=== PATIENT | female | born 1990 | race Hispanic/Latino ===

== ENCOUNTER 2018-05-10 23:14 | Emergency (ER) | payer OTHER, SELFPAY ==
--- NOTE | 2018-05-11 01:09 | EDPHYS ---
Physician Documentation [facility] Name: Lizzette Mcneal Age: 27 yrs Sex: Female : 1990 Arrival Date: 05/10/2018 Time: 23:15 Bed 20 Private MD: ED Physician Gael Carcamo HPI: 05/11 01:21 This 27 yrs old Female presents to ER via Ambulatory with complaints of gs Urinary Problem, Abdominal Pain. 01:21 The patient presents with abdominal pain in the lower abdomen. Onset: The gs symptoms/episode began/occurred yesterday. The symptoms do not radiate. Associated signs and symptoms: Pertinent negatives: nausea and vomiting, fever. The symptoms are described as crampy, intermittent. Modifying factors: The symptoms are alleviated by nothing, the symptoms are aggravated by urinating. Severity of pain: At its worst the pain was moderate in the emergency department the pain has improved markedly. The patient has experienced similar episodes in the past, a few times. The patient has not recently seen a physician. 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 - Social history:: Smoking status: Patient uses tobacco products, smokes one-half pack cigarettes per day, Patient/guardian denies using alcohol, street drugs. - Ebola Screening: : Patient negative for fever greater than or equal to 101.5 degrees Fahrenheit, and additional compatible Ebola Virus Disease symptoms Patient denies exposure to infectious person Patient denies travel to an Ebola-affected area in the 21 days before illness onset. ROS: 05/11 01:21 All other systems are negative. gs Exam: 01:21 Head/Face: Normocephalic, atraumatic. Eyes: Pupils equal round and reactive to light, gs extra-ocular motions intact. Lids and lashes normal. Conjunctiva and sclera are non-icteric and not injected. Cornea within normal limits. Periorbital areas with no swelling, redness, or edema. ENT: Nares patent. No nasal discharge, no septal abnormalities noted. Tympanic membranes are normal and external auditory canals are clear. Oropharynx with no redness, swelling, or masses, exudates, or evidence of obstruction, uvula midline. Mucous membranes moist. Neck: Trachea midline, no thyromegaly or masses palpated, and no cervical lymphadenopathy. Supple, full range of motion without nuchal rigidity, or vertebral point tenderness. No Meningismus. Chest/axilla: Normal chest wall appearance and motion. Nontender with no deformity. No lesions are appreciated. Cardiovascular: Regular rate and rhythm with a normal S1 and S2. No gallops, murmurs, or rubs. Normal PMI, no JVD. No pulse deficits. Respiratory: Lungs have equal breath sounds bilaterally, clear to auscultation and percussion. No rales, rhonchi or wheezes noted. No increased work of breathing, no retractions or nasal flaring. Back: No spinal tenderness. No costovertebral tenderness. Full range of motion. Skin: Warm, dry with normal turgor. Normal color with no rashes, no lesions, and no evidence of cellulitis. MS/ Extremity: Pulses equal, no cyanosis. Neurovascular intact. Full, normal range of motion. Neuro: Awake and alert, GCS 15, oriented to person, place, time, and situation. Cranial nerves II-XII grossly intact. Motor strength 5/5 in all extremities. Sensory grossly intact. Cerebellar exam normal. Normal gait. 01:21 Constitutional: The patient appears alert, awake. 01:21 Abdomen/GI: Palpation: mild abdominal tenderness, in the suprapubic area. Vital Signs: 05/10 23:28 BP 114 / 75; Pulse 63; Resp 18; Temp 98.0; Pulse Ox 100% ; Weight 88 kg (R); Height 5 ao ft. 0 in. (152.40 cm) (R); Pain 10/10; 05/11 00:28 BP 115 / 74; Pulse 64; Resp 18; Pulse Ox 98% on R/A; ao 05/10 23:28 Body Mass Index 37.89 (88.00 kg, 152.40 cm) ao MDM: 00:33 Patient medically screened. gs 01:21 Differential diagnosis: Ectopic , non-specific abd pain, urinary tract gs infection. Data reviewed: vital signs, nurses notes, lab test result(s). Response to treatment: the patient's symptoms have markedly improved after treatment, and as a result, I will discharge patient. ED course: gave results of udip, doesn't want to wait for micro just wants abx. 05/10 23:23 Order name: Urine Microscopic Only 05/11 00:50 Order name: Urine Dipstick--Ancillary (enter results) ms 05/10 23:23 Order name: Urine Test (obtain specimen); Complete Time: 01:09 05/10 23:23 Order name: Urine Dipstick-Ancillary (obtain specimen); Complete Time: 01: 05/11 00:50 Order name: Urine --Ancillary (enter results) ms Administered Medications: No medications were administered Disposition: 05/11/18 01:08 Discharged to Home. Impression: Cystitis. - Condition is Stable. - Prescriptions for Keflex 500 mg Oral Capsule - take 1 capsule by ORAL route every 12 hours for 7 days; 14 capsule. - Medication Reconciliation Form, Thank You Letter, Antibiotic Education, Prescription Opioid Use form. - Follow up: Private Physician; When: 2 - 3 days; Reason: Re-evaluation by your physician. Signatures: Dispatcher [employer] EDKS Vineet Cedillo RN RN Gael Sanchez MD MD Corrections: (The following items were deleted from the chart) 01:12 01:08 05/11/2018 01:08 Discharged to Home. Impression: Cystitis. Condition is Stable. ao Forms are Medication Reconciliation Form, Thank You Letter, Antibiotic Education, Prescription Opioid Use. Follow up: Private Physician; When: 2 - 3 days; Reason: Re-evaluation by your physician.
--- NOTE | 2018-05-11 01:09 | ER ---
Nurse's Notes [facility] Name: Lizzette Mcneal Age: 27 yrs Sex: Female : 1990 Arrival Date: 05/10/2018 Time: 23:15 Bed 20 Private MD: Diagnosis: Cystitis Presentation: 05/10 23:26 Presenting complaint: Patient states: Abdominal pain after having BM. Patient reports ao sharp pain in the lower abdominal area. Transition of care: patient was not received from another setting of care. Onset of symptoms was May 10, 2018 at 21:00. Risk Assessment: Do you want to hurt yourself or someone else? Patient reports no desire to harm self or others. Initial Sepsis Screen: Does the patient meet any 2 criteria? No. Patient's initial sepsis screen is negative. Does the patient have a suspected source of infection? No. Patient's initial sepsis screen is negative. Care prior to arrival: None. 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 - Social history:: Smoking status: Patient uses tobacco products, smokes one-half pack cigarettes per day, Patient/guardian denies using alcohol, street drugs. - Ebola Screening: : Patient negative for fever greater than or equal to 101.5 degrees Fahrenheit, and additional compatible Ebola Virus Disease symptoms Patient denies exposure to infectious person Patient denies travel to an Ebola-affected area in the 21 days before illness onset. Screenin:31 Abuse screen: Denies threats or abuse. Denies injuries from another. Nutritional ao screening: No deficits noted. Tuberculosis screening: No symptoms or risk factors identified. Fall Risk None identified. Assessment: 23:30 General: Appears in no apparent distress. comfortable, Behavior is agitated, anxious, ao inappropriate for age. Pain: Complains of pain in abdomen Pain currently is 10 out of 10 on a pain scale. Quality of pain is described as sharp. Neuro: Level of Consciousness is awake, alert, obeys commands, Oriented to person, place, time, situation, Appropriate for age Moves all extremities. Full function Speech is normal, Facial symmetry appears normal. Cardiovascular: Capillary refill < 3 seconds Patient's skin is warm and dry. Respiratory: Airway is patent Respiratory effort is even, unlabored, Respiratory pattern is regular, symmetrical. GI: Bowel sounds present X 4 quads. Abd is soft and non tender Abd is soft. : No signs and/or symptoms were reported regarding the genitourinary system. EENT: No signs and/or symptoms were reported regarding the EENT system. Derm: Skin is intact, Skin is pink, warm \T\ dry. normal, Skin temperature is warm. Musculoskeletal: Circulation, motion, and sensation intact. Range of motion: intact in all extremities. 05/11 00:28 Reassessment: Patient appears in no apparent distress at this time. Patient and/or ao family updated on plan of care and expected duration. Pain level reassessed. Patient is alert, oriented x 3, equal unlabored respirations, skin warm/dry/pink. at bedside assessing patient. 01:10 Reassessment: Patient appears in no apparent distress at this time. Patient wanted to ao be go home. Dr Carcamo was notified and DC patient. Patient got a prescriptions to take home and stated that she will follow up with PCP. Vital Signs: 05/10 23:28 BP 114 / 75; Pulse 63; Resp 18; Temp 98.0; Pulse Ox 100% ; Weight 88 kg (R); Height 5 ao ft. 0 in. (152.40 cm) (R); Pain 10/10; 05/11 00:28 BP 115 / 74; Pulse 64; Resp 18; Pulse Ox 98% on R/A; ao 05/10 23:28 Body Mass Index 37.89 (88.00 kg, 152.40 cm) ao ED Course: 05/10 23:15 Patient arrived in ED. am2 23:22 Gael Carcamo MD is Attending Physician. gs 23:26 Vineet Cedillo, RAMOS is Primary Nurse. ao 23:28 Triage completed. ao 23:28 Arm band placed on right wrist. Patient placed in an exam room, on a stretcher, on ao pulse oximetry, Patient notified of wait time. 23:32 Patient has correct armband on for positive identification. Pulse ox on. NIBP on. ao 05/11 01:00 No provider procedures requiring assistance completed. Patient did not have IV access ao during this emergency room visit. Administered Medications: No medications were administered Outcome: 01:08 Discharge ordered by . 01:12 Patient left the ED. ao 01:48 Discharged to home ambulatory, with family. ao 01:48 Condition: stable 01:48 Discharge instructions given to patient, Instructed on discharge instructions, follow up and referral plans. Demonstrated understanding of instructions, follow-up care, medications, Prescriptions given X 1. Addendum: 05/14/2018 09:43 Addendum: Culture Results: Positive urine culture. No further action required. Bacteria s s sensitive to prescribed antibiotic. Signatures: Aishwarya Lal RN RN ss Ortiz, Alex, RN RN ao Moreno, Amanda am2 Starr, Gregory, MD MD
[2018-05-11 01:13] LABS: Urine Bacteria >50 /HPF (<20); Urine Culture Reflex Order REFLEXED; Urine RBC NONE SEEN /HPF (NONE SEEN)
[2018-05-11 02:36] LABS: Urine Blood TRACE (NEG); Urine Glucose NEGATIVE (NEG); Urine Protein NEGATIVE (NEG); Urine Specific Gravity 1.025 (1.005-1.030)
== END 2018-05-11 01:12 | disposition home or self-care (01) ==
LOC: ER 23:14
DX: N30.90 Cystitis, unspecified without hematuria (principal)
CPT/HCPCS: 81003; 81015; 81025; 87077; 87086; 87088; 87186; 99283

== ENCOUNTER 2018-08-02 19:25 | Emergency (ER) | payer SELFPAY ==
[2018-08-02 20:20] LABS: Absolute Lymphocytes (CBC) 2.9 K/uL (0.7-4.9); Absolute Monocytes 0.8 K/uL (0.1-1.3); Absolute Neutrophil 5.5 K/uL (1.8-8.0); Basophils % 0.4 % (0-1.3); Eosinophils % 1.9 % (0-4.4); Lymphocytes % 30.7 % (15.3-44.8); MCH 30.5 pg (27.0-35.0); MCV 89.2 fL (80-100); MPV 8.1 fL (7.6-11.3); Monocytes % 8.2 % (3.3-12.3); RBC Red Blood Cell Count 4.37 M/uL (3.86-4.86)
--- NOTE | 2018-08-02 20:33 | RAD REPORT ---
EXAM DESCRIPTION: RAD - Chest Single View - 08/02/2018 8:05 pm CLINICAL HISTORY: Chest pain, shortness of breath COMPARISON: None. TECHNIQUE: AP portable chest image was obtained 1951 hours . FINDINGS: Lungs are clear. Heart and vasculature are normal. No measurable pleural effusion and no p neumothorax. No acute bony abnormality seen. No acute aortic findings suspected. IMPRESSION: No acute cardiopulmonary process.
[2018-08-02 20:37] LABS: BUN Blood Urea Nitrogen 7 mg/dL (7-18); Bicarbonate 26 mmol/L (21-32); Glucose Level 107 mg/dL (74-106); Potassium 3.9 mmol/L (3.5-5.1); Sodium Level 140 mmol/L (136-145); Troponin (Emerg Dept Use Only) < 0.02 ng/mL (0.0-0.045)
--- NOTE | 2018-08-02 20:55 | EDPHYS ---
Physician Documentation [facility] Name: Lizzette Mcneal Age: 27 yrs Sex: Female : 1990 Arrival Date: 08/02/2018 Time: 19:27 Bed 13 Private MD: None, None ED Physician Christoph Doll HPI: 08/02 20:48 This 27 yrs old Female presents to ER via Ambulatory with complaints of Chest pm1 Pain. 20:48 The patient or guardian reports chest pain that is located primarily in the mid-sternal pm1 area. The pain does not radiate. Associated signs and symptoms: Pertinent negatives: abdominal pain, cough, diaphoresis, dizziness, headache, nausea, shortness of breath, vomiting. The chest pain is described as sharp. Duration: The patient or guardian reports a single episode, that is still ongoing. Modifying factors: the symptoms are aggravated by cough, deep breath. Severity of pain: in the emergency department the pain is unchanged. The patient has not experienced similar symptoms in the past. Patient with onset of chest pain last night. Pain worse with deep breathing, cough, and palpation. Patient does not have shortness of breath but reports breathing shallower to prevent deep breathing to cause pain. 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 - Social history:: Smoking status: Patient uses tobacco products, smokes one-half pack cigarettes per day. - Ebola Screening: : Patient denies travel to an Ebola-affected area in the 21 days before illness onset. ROS: 20:48 Constitutional: Negative for fever, chills, and weight loss, Eyes: Negative for injury, pm1 pain, redness, and discharge, ENT: Negative for injury, pain, and discharge, Neck: Negative for injury, pain, and swelling, Respiratory: Negative for shortness of breath, cough, wheezing, and pleuritic chest pain. 20:48 Abdomen/GI: Negative for abdominal pain, nausea, vomiting, diarrhea, and constipation, Back: Negative for injury and pain, : Negative for injury, bleeding, discharge, and swelling, MS/Extremity: Negative for injury and deformity, Skin: Negative for injury, rash, and discoloration, Neuro: Negative for headache, weakness, numbness, tingling, and seizure. 20:48 Cardiovascular: Positive for chest pain, Negative for edema, orthopnea, palpitations. Exam: 20:48 Constitutional: This is a well developed, well nourished patient who is awake, alert, pm1 and in no acute distress. Head/Face: Normocephalic, atraumatic. Eyes: Pupils equal round and reactive to light, extra-ocular motions intact. Lids and lashes normal. Conjunctiva and sclera are non-icteric and not injected. Cornea within normal limits. Periorbital areas with no swelling, redness, or edema. ENT: Nares patent. No nasal discharge, no septal abnormalities noted. Tympanic membranes are normal and external auditory canals are clear. Oropharynx with no redness, swelling, or masses, exudates, or evidence of obstruction, uvula midline. Mucous membranes moist. Neck: Trachea midline, no thyromegaly or masses palpated, and no cervical lymphadenopathy. Supple, full range of motion without nuchal rigidity, or vertebral point tenderness. No Meningismus. 20:48 Cardiovascular: Regular rate and rhythm with a normal S1 and S2. No gallops, murmurs, or rubs. Normal PMI, no JVD. No pulse deficits. Respiratory: Lungs have equal breath sounds bilaterally, clear to auscultation and percussion. No rales, rhonchi or wheezes noted. No increased work of breathing, no retractions or nasal flaring. 20:48 Abdomen/GI: Soft, non-tender, with normal bowel sounds. No distension or tympany. No guarding or rebound. No evidence of tenderness throughout. Back: No spinal tenderness. No costovertebral tenderness. Full range of motion. Skin: Warm, dry with normal turgor. Normal color with no rashes, no lesions, and no evidence of cellulitis. MS/ Extremity: Pulses equal, no cyanosis. Neurovascular intact. Full, normal range of motion. 20:48 Chest/axilla: Inspection: normal, Palpation: tenderness, of the mid-sternal area, that totally reproduces the patient's complaints, Pain reproduced completely with deep breathing. 20:48 NSR 20:48 Neuro: Orientation: is normal, Motor: is normal, moves all fours, Sensation: is normal, no obvious gross deficits, Gait: is steady, at a normal pace, without difficulty. Vital Signs: 19:34 BP 115 / 67; Pulse 73; Resp 18; Temp 97.6; Pulse Ox 99% on R/A; Weight 87.54 kg (R); aj1 Height 5 ft. 4 in. (162.56 cm) (R); Pain 5/10; 20:50 BP 112 / 63; Pulse 75; Resp 17 S; Pulse Ox 99% on R/A; cc3 19:34 Body Mass Index 33.13 (87.54 kg, 162.56 cm) aj1 MDM: 19:47 Patient medically screened. pm1 20:48 The patient's pulmonary embolism risk score was calculated as follows: No Risks (0 pm1 Pts). JOÃO Risk Score: TOTAL SCORE = 0. 20:48 Data reviewed: vital signs. pm1 20:48 Data interpreted: Pulse oximetry: on room air is 99 %. Interpretation: normal. pm1 Counseling: I had a detailed discussion with the patient and/or guardian regarding: the historical points, exam findings, and any diagnostic results supporting the discharge/admit diagnosis, lab results, radiology results, the need for outpatient follow up, to return to the emergency department if symptoms worsen or persist or if there are any questions or concerns that arise at home. 20:48 ED course: Patient offered Toradol for pain but patient refused and wants to take pm1 ibuprofen at home. 08/02 19:50 Order name: Basic Metabolic Panel; Complete Time: 20:42 pm1 08/02 19:50 Order name: CBC with Diff; Complete Time: 20:27 pm1 08/02 19:50 Order name: Troponin (emerg Dept Use Only); Complete Time: 20:42 pm1 08/02 19:50 Order name: XRAY Chest (1 view); Complete Time: 20:38 pm1 08/02 19:50 Order name: EKG; Complete Time: 19:51 pm1 08/02 19:50 Order name: Cardiac monitoring; Complete Time: 20:06 pm1 08/02 19:50 Order name: EKG - Nurse/Tech; Complete Time: 20:06 pm1 08/02 19:50 Order name: IV Saline Lock; Complete Time: 20:56 pm1 08/02 19:50 Order name: Labs collected and sent; Complete Time: 20:56 pm1 08/02 19:50 Order name: O2 Per Protocol; Complete Time: 20:07 pm1 08/02 19:50 Order name: O2 Sat Monitoring; Complete Time: 20:07 pm1 Administered Medications: No medications were administered Disposition: 08/03 06:17 Co-signature as Attending Physician, Christoph Doll MD Available for consultation at ps1 all times.. Disposition: 08/02/18 20:54 Discharged to Home. Impression: Chest pain, unspecified. - Condition is Stable. - Discharge Instructions: Nonspecific Chest Pain, Chest Wall Pain. - Prescriptions for Naprosyn 500 mg Oral Tablet - take 1 tablet by ORAL route 2 times per day take with food; 30 tablet. Cyclobenzaprine 10 mg Oral Tablet - take 1 tablet by ORAL route every 8 hours As needed; 30 tablet. - Medication Reconciliation Form, Thank You Letter form. - Follow up: Emergency Department; When: As needed; Reason: Worsening of condition. Follow up: Private Physician; When: 2 - 3 days; Reason: Recheck today's complaints, Continuance of care, Re-evaluation by your physician. - Problem is new. - Symptoms have improved. Signatures: Dispatcher [employer] EDCelia Hernandez RN RN aj1 Luis E Dupree, TRAVELING INVENTORY ASSOCIATE TRAVELING INVENTORY ASSOCIATE pm1 Christoph Doll MD MD ps1 Michelle Newman cc3 Corrections: (The following items were deleted from the chart) 08/02 21:15 20:54 08/02/2018 20:54 Discharged to Home. Impression: Chest pain, unspecified. cc3 Condition is Stable. Forms are Medication Reconciliation Form, Thank You Letter, Antibiotic Education, Prescription Opioid Use. Follow up: Emergency Department; When: As needed; Reason: Worsening of condition. Follow up: Private Physician; When: 2 - 3 days; Reason: Recheck today's complaints, Continuance of care, Re-evaluation by your physician. Problem is new. Symptoms have improved. pm1
--- NOTE | 2018-08-02 20:55 | ER ---
Nurse's Notes [facility] Name: Lizzette Mcneal Age: 27 yrs Sex: Female : 1990 Arrival Date: 08/02/2018 Time: 19:27 Bed 13 Private MD: None, None Diagnosis: Chest pain, unspecified Presentation: 08/02 19:31 Presenting complaint: Patient states: Chest pain since yesterday. Today she was walking aj1 at the store and the pain got worse. States the pain is worse when she takes a deep breath or coughs. Also reports SOB. Denies fever, palpitations, dizziness. Transition of care: patient was not received from another setting of care. Onset of symptoms was August 01, 2018. Risk Assessment: Do you want to hurt yourself or someone else? Patient reports no desire to harm self or others. Initial Sepsis Screen: Does the patient meet any 2 criteria? No. Patient's initial sepsis screen is negative. Does the patient have a suspected source of infection? No. Patient's initial sepsis screen is negative. Care prior to arrival: None. 19:31 Method Of Arrival: Ambulatory aj 19:31 Acuity: GREGG 3 aj1 Triage Assessment: 19:34 General: Appears in no apparent distress. comfortable, Behavior is calm, cooperative, aj1 appropriate for age. Pain: Complains of pain in mid-sternal area Pain does not radiate. Pain currently is 4 out of 10 on a pain scale. at worst was 5 out of 10 on a pain scale. Neuro: Level of Consciousness is awake, alert, obeys commands. Cardiovascular: Patient's skin is warm and dry. Respiratory: Airway is patent Respiratory effort is even, unlabored, Respiratory pattern is regular, symmetrical. 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 - Social history:: Smoking status: Patient uses tobacco products, smokes one-half pack cigarettes per day. - Ebola Screening: : Patient denies travel to an Ebola-affected area in the 21 days before illness onset. Screenin:40 Abuse screen: Denies threats or abuse. Denies injuries from another. Nutritional cc3 screening: No deficits noted. Tuberculosis screening: No symptoms or risk factors identified. Fall Risk Ambulatory Aid- None/Bed Rest/Nurse Assist (0 pts). Gait- Normal/Bed Rest/Wheelchair (0 pts) Mental Status- Oriented to own ability (0 pts). Assessment: 19:40 Pain: Pain began 1 day ago. cc3 20:30 Reassessment: Patient appears in no apparent distress at this time. Patient and/or cc3 family updated on plan of care and expected duration. Pain level reassessed. Patient is alert, oriented x 3, equal unlabored respirations, skin warm/dry/pink. 21:13 Reassessment: Patient appears in no apparent distress at this time. Patient and/or cc3 family updated on plan of care and expected duration. Pain level reassessed. Patient is alert, oriented x 3, equal unlabored respirations, skin warm/dry/pink. KODY Kimbrough discharged the patient home with prescriptions given and said no need for the urine sample. IV cannula removed and patient left ER vitally stable and ambulatory. Vital Signs: 19:34 BP 115 / 67; Pulse 73; Resp 18; Temp 97.6; Pulse Ox 99% on R/A; Weight 87.54 kg (R); aj1 Height 5 ft. 4 in. (162.56 cm) (R); Pain 5/10; 20:50 BP 112 / 63; Pulse 75; Resp 17 S; Pulse Ox 99% on R/A; cc3 19:34 Body Mass Index 33.13 (87.54 kg, 162.56 cm) aj1 ED Course: 19:27 Patient arrived in ED. mr 19:27 None, None is Private Physician. mr 19:33 Triage completed. aj1 19:34 Arm band placed on Patient placed in an exam room. aj1 19:38 Luis [facility] Dupree [facility] pm1 19:38 Christoph Doll MD is Attending Physician. pm1 19:40 Patient has correct armband on for positive identification. Bed in low position. Call cc3 light in reach. Side rails up X 1. spool winder on. Pulse ox on. NIBP on. 20:04 X-ray completed. Portable x-ray completed in exam room. Patient tolerated procedure az well. 20:05 XRAY Chest (1 view) In Process Unspecified. EDMS 20:05 Inserted saline lock: 22 gauge in right antecubital area, using aseptic technique. cc3 Blood collected. inserted by dentures lab technician Nick. 21:13 No provider procedures requiring assistance completed. IV discontinued, intact, cc3 bleeding controlled, No redness/swelling at site. Pressure dressing applied. Patient maintains SpO2 saturation greater than 95% on room air. Administered Medications: No medications were administered Outcome: 20:54 Discharge ordered by MD. pm1 21:13 Discharged to home ambulatory. cc3 21:13 Condition: stable 21:13 Discharge instructions given to patient, Instructed on discharge instructions, follow up and referral plans. medication usage, Demonstrated understanding of instructions, follow-up care, medications, Prescriptions given X 2. 21:15 Patient left the ED. cc3 Signatures: Dispatcher [employer] EDMS Celia Galarza RN RN aj1 WesleyAwa mr Luis E Dupree, CHIEF OF SERVICE CHIEF OF SERVICE pm1 Jett Cui RN RN Michelle Glasgow cc3 Katia Diaz Corrections: (The following items were deleted from the chart) 20:57 19:41 Jett Cui, RN is Primary Nurse. brandie diego
--- NOTE | 2018-08-05 07:16 | EKG ---
Test Date: 2018-08-02 Test Time: 19:40:17 Man[employer] Development Specialist: MEASUREMENT RESULTS: Intervals: Rate: 65 OR: 150 QRSD: 80 QT: 386 QTc: 401 [place]: P: 42 OR: 150 QRS: 18 T: -6 INTERPRETIVE STATEMENTS: Normal sinus rhythm Normal ECG Compared to ECG 08/02/2018 19:39:51 No significant changes Electronically Signed On 08-05-18 07:11:29 JAVA DESIGNER by Aly Alegria
--- NOTE | 2018-08-05 07:16 | EKG ---
Test Date: 2018-08-02 Test Time: 19:39:51 Plastic Roller: MEASUREMENT RESULTS: Intervals: Rate: 64 HI: 152 QRSD: 82 QT: 392 QTc: 404 [place]: P: 54 HI: 152 QRS: 17 T: 3 INTERPRETIVE STATEMENTS: Normal sinus rhythm Normal ECG No previous ECG available for comparison Electronically Signed On 08-05-18 07:11:30 ENTRY LEVEL RECEPTIONIST by Aly Alegria
== END 2018-08-02 21:15 | disposition home or self-care (01) ==
LOC: ER 19:25
DX: R07.9 Chest pain, unspecified (principal); F17.210 Nicotine dependence, cigarettes, uncomplicated
CPT/HCPCS: 36415; 71045; 80048; 84484; 85025; 93005; 99285